=== PATIENT | female | born 1990 | race Caucasian/White ===

== ENCOUNTER 2018-08-05 00:36 | Emergency (ER) | payer SELFPAY ==
[~2018-08-05] VITALS: Ht 167.6 cm; Wt 143.3 kg
[2018-08-05 00:49] VITALS: Ht 167.6 cm; Wt 143.3 kg
--- NOTE | 2018-08-05 01:27 | ERD ---
ER Documentation Chief Complaint Chief Complaint left earache x 2 days HPI This is a 27-year-old female presents here to emergency department with complaints of left ear pain for about 2 days. LMP: 2-3 weeks ago. G1, . Denies headache, head injury, loss of consciousness, dizziness, neck pain, neck stiffness, throat pain, difficulty swallowing, difficulty breathing lying flat, shoulder pain, chest pain, back pain, abdominal pain, nausea, vomiting, constipation, diarrhea, urinary symptoms, or possibility being , loss of bowel and bladder control, trauma, injury, falls, difficulty walking due to pain, numbness or tingling sensation, calf pain, recent travel, recent major surgery in the last 3 weeks, calf pain, recent long travel, recent exposure to any illness, recent antibiotic use in the last 3 months, fever, chills, seizures. Past medical history: Surgical history: Social: Denies smoking, use of alcoholic beverages, use of illegal drugs. ROS All systems reviewed and are negative except as per history of present illness. Medications Home Meds Active Scripts Amoxicillin* (Amoxicillin*) 500 Mg Cap, 500 MG PO TID for 7 Days, CAP Prov:PASILABAN,KLAR F 08/05/18 Ibuprofen* (Motrin*) 800 Mg Tab, 800 MG PO Q6H PRN for PAIN AND OR ELEVATED TEMP, #30 TAB Prov:PASILABAN,KLAR F 08/05/18 Ciprofloxacin Hcl/Dexameth (Ciprodex Otic Suspension) 7.5 Ml Drops.susp, 4 DROP LEFT EAR BID for 7 Days, EA Prov:PASILABAN,KLAR F 08/05/18 Allergies Allergies: Coded Allergies: No Known Drug Allergies (Verified Allergy, Unknown, 08/05/18) Physical Exam Vitals Physical Exam Const: No acute distress Head: Atraumatic Eyes: Normal Conjunctiva ENT: Normal External Ears, Nose and Mouth. Left ear: External canal is erythematous. TM is mildly erythematous. No bleeding. No discharge. No hearing loss. No mastoid tenderness. Right ear: TM is erythematous. No bleeding. No discharge. No mastoid tenderness. No hearing loss. No foreign body seen bilaterally. Nose: Midline without deviation. Throat: Uvula is midline and nondisplaced. Tonsils are +2 bilaterally without redness and without exudates. Tolerating secretions. Patent airway. Speaks full and clear sentences. Neck: Full range of motion. No meningismus. Resp: Clear to auscultation bilaterally Cardio: Regular rate and rhythm, no murmurs Abd: Soft, non tender, non distended. Normal bowel sounds Skin: No petechiae or rashes Back: No midline or flank tenderness Ext: No cyanosis, or edema Neur: Awake and alert. No neurological deficits. Psych: Normal Mood and Affect Results 24 hrs Current Medications Medications Dose Sig/Khris Start Time Status Last (Trade) Ordered Route PRN Stop Time Admin Dose Reason Admin Ibuprofen 800 mg ONCE ONCE 08/05/18 DC 08/05/18 (Motrin) PO 01:30 08/05/18 01:44 01:31 Procedures/MDM Diagnostic tests: Clinical exam. Treatment: Motrin. Re-evaluation: Denies pain. No neurological deficits. Differential diagnosis I have low suspicion for sepsis, mastoiditis, meningitis, pneumonia, retained foreign body. Final diagnosis: Otitis media. Otitis externa. Prescription: Ciprodex. Amoxicillin. Motrin. Follow-up with PCP in the next 24-48 hours. Come back here in the emergency department for any new symptoms or any worsening symptoms. All questions and concerns were answered. Patient and family members verbalized understanding and agreed with plan of care. Hemodynamically stable on discharge. Departure Diagnosis: Primary Impression: Otitis media Additional Impression: Otitis externa Condition: Stable Additional Instructions: Follow-up with PCP in the next 24-48 hours. Come back here in the emergency department for any new symptoms or any worsening symptoms. ELSY KRUGER Aug 05, 2018 01:27
[2018-08-05] MEDS ORDERED: IBUPROFEN 800 MG TAB PO ONE (01:30)
[2018-08-05] MEDS ORDERED: CIPR7.5D LEFT EAR (01:53)
[2018-08-05] MEDS ORDERED: AMOX500C2 PO (01:53)
[2018-08-05] MEDS ORDERED: IBUP800T48 PO (01:53)
[2018-08-05 02:25] VITALS: BP 141/82; PULSE 82; RESP 16
== END 2018-08-05 02:26 | disposition home or self-care (01) ==
LOC: FTE 00:36
DX: H66.92 Otitis media, unspecified, left ear (principal); H60.92 Unspecified otitis externa, left ear
CPT/HCPCS: 99283